=== PATIENT | female | born 1965 | race Caucasian/White ===

== ENCOUNTER 2019-09-12 06:07 | Inpatient (IN) | payer OTHER ==
[~2019-09-12] VITALS: Ht 165.1 cm; Wt 96.6 kg
[~2019-09-12 06:07] MED LIST: ALLEGRA ALLERGY60 MG; FISH OIL 1,0001 EAC2; HYDROCHLOROTHIA25 MG; MONTELUKAST SOD10 MG PO; MULTI-VITAMIN1 EACH; OZEMPIC1 MG/0.75; SIMVASTATIN20 MG PO; SPIRONOLACTONE25 MG PO; VITAMIN D34000 UNIT
--- OUTSIDE RECORDS SUMMARY | 2019-09-12 06:09 | XMS REPORT ---
Author Author [facility] Address Unknown Phone Unavailable Care Team Providers Care Chef Teacher Name Role Phone Unavailable Unavailable Problems This patient has no known problems. Allergies, Adverse Reactions, Alerts This patient has no known allergies or adverse reactions. Medications This patient has no known medications. Encounters Start Date/Time End Date/Time Encounter Type Admission Type Attending Clinicians Care Facility Care Department Encounter ID 2019-05-04 06:26:00 2019-05-04 06:26:00 Outpatient [id number]
--- OUTSIDE RECORDS SUMMARY | 2019-09-12 06:09 | XMS REPORT | Summary of Care ---
Author Author Delilah Rich M.A. Organization Unknown Address [facility] Phone Unavailable Care Team Providers Care Manager House Name Role Phone Delilah Rich M.A. Unavailable Unavailable MAURY Pacheco, LUPE Unavailable Unavailable AMURY SANDOVAL, LUPE Unavailable Unavailable Myriam Ragsdale MD Unavailable Unavailable JOSSIE Pacheco, PEÑA Unavailable Unavailable Unavailable Unavailable Functional Status Name Dates Details Functional status health issues are not documented Status: Name Dates Details Cognitive status health issues are not documented Status: Problems Name Dates Details Abnormal urine finding (791.9, R82.90) Status: Active Chronic radicular lumbar pain (724.4, M54.16) Status: Active Right knee pain (719.46, M25.561) Status: Active Acute bronchitis, bacterial (466.0, J20.8) Status: Active Albinism, 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, 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 Hypertriglyceridemia (272.1, E78.1) Status: Active Basal cell carcinoma of skin (173.91, C44.91) Status: Active Encounter for removal of sutures (V58.32, Z48.02) Status: Active Need for Tdap vaccination (V06.1, Z23) Status: Active Hypertension (401.9, I10) Status: Active Hyperlipidemia (272.4, E78.5) Status: Active Allergic rhinitis (477.9, J30.9) Status: Active Obesity, morbid, BMI 40.0-49.9 (278.01, E66.01) Status: Active Influenza vaccination declined (V64.06, Z28.21) Status: Active Morbid obesity, unspecified obesity type (278.01, E66.01) Status: Active Colon cancer screening (V76.51, Z12.11) Status: Active Medications Name Dates Details Montelukast Sodium 10 MG Oral Tablet TAKE 1 TABLET DAILY FOR ALLERGY PREVENTION Quantity: 90 MAURY Pacheco, LUPE Active Simvastatin 20 MG Oral Tablet TAKE 1 TABLET BY MOUTH DAILY * Quantity: 90 Refills: 0 SATTAR M.D., LUPE * Start : 08-Aug-2017 Active Vitamin C CAPS 1000 mg TAKE 1 CAPSULE DAILY. * Refills: 0 Active Wainwright 3 CAPS TAKE 1 CAPSULE DAILY * Refills: 0 Active Womens One Daily Oral Tablet TAKE 1 TABLET DAILY. * Refills: 0 Active hydroCHLOROthiazide 12.5 MG Oral Capsule TAKE ONE CAPSULE BY MOUTH DAILY * Quantity: 90 Refills: 0 SATTAR M.D., LUPE * Start : 08-Aug-2017 Active Fluticasone Propionate 50 MCG/ACT Nasal Suspension SHAKE LIQUID AND USE 1 SPRAY IN EACH NOSTRIL EVERY DAY * Quantity: 16 Refills: 0 SATTAR M.D., LUPE * Start : 20-Apr-2017 Active Azelastine HCl - 0.1 % Nasal Solution INSTILL 2 SPRAYS IN EACH NOSTRIL ONCE DAILY * Quantity: 1 Refills: 2 SATTAR M.D., LUPE * Start : 14-Aug-2014 Active 30 ML Bottle Finacea 15 % External Gel APPLY SPARINGLY AND RUB IN WELL TO AFFECTED AREA(S) ONCE DAILY. * Refills: 0 Active Spironolactone 25 MG Oral Tablet TAKE 1/2- 1 TABLET BY MOUTH DAILY NEEDED * Quantity: 90 Refills: 0 SATTAR M.D., LUPE * Start : 08-Aug-2017 Active Allergy ELIX INJECTION ONCE MONTHLY WITH VB NET PROGRAMMER- DR. 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0, Z83.3) Status: Active Family history of Prostate cancer (185, C61) Status: Active Social History Name Dates Details - Status: Name Dates Details Never smoker Vital Signs Date Test Result Details [id number] BP Systolic 126 mm[Hg] Status: Comments: Location: LUE; Position: Sitting BP Diastolic 78 mm[Hg] Status: Comments: Location: LUE; Position: Sitting Height 65.5 in Status: Weight 210.8 lb Status: Body Mass Index Calculated 34.55 kg/m2 Status: Body Surface Area Calculated 2.03 m2 Status: Heart Rate 74 /min Status: Comments: Location: L Brachial Artery; Respiration Rate 18 /min Status: Results Date Description Value Details Results not documented Plan of Care Name Dates Details Planned Observations Planned Goals not documented Interventions Provided Labs/Procedures/Imaging* Colonoscopy; Done: 04 May 2019 Instructions Name Dates Details Instructions not documented Encounters Appointment; LUPE MENDIOLA M.D. Encounter Diagnosis: Problem not documented On: 10-May-2017 8:00 Appointment; MYRIAM RAGSDALE M.D. Encounter Diagnosis: Problem not documented On: 12-Apr-2019 16:15
[2019-09-12 07:48] LABS: BASOPHILS % 0.3 % (0.0-1.0); EOSINOPHILS # (AUTO) 0.2 (0.0-0.4); EOSINOPHILS % 2.4 % (0.0-6.0); HEMATOCRIT 41.4 % (34.2-44.1); HEMOGLOBIN 14.3 g/dL (12.0-16.0); LYMPHOCYTES # (AUTO) 1.4 (1.0-3.2); LYMPHOCYTES % 19.3 % (18.0-39.1); MEAN CORPUSCULAR HEMOGLOBIN 31.8 pg (28-32); MEAN CORPUSCULAR HGB CONC 34.5 g/dL (31-35); MEAN CORPUSCULAR VOLUME 92.2 fL (81-99); MONOCYTES # (AUTO) 0.5 (0.2-0.8); MONOCYTES % 7.7 % (4.4-11.3); NEUTROPHILS # (AUTO) 4.9 (2.1-6.9); NEUTROPHILS % 69.9 % (38.7-80.0); PLATELET COUNT 229 x10e3/uL (140-360); RED BLOOD COUNT 4.49 x10e6/uL (3.6-5.1); RED CELL DISTRIBUTION WIDTH 12.8 % (11.7-14.4)
[2019-09-12 08:07] LABS: ANION GAP 9.2 mmol/L (8-16); BLOOD UREA NITROGEN 15 mg/dL (7-26); BUN/CREATININE RATIO 21 (6-25); CALCIUM 9.1 mg/dL (8.4-10.2); CARBON DIOXIDE 27 mmol/L (22-29); CHLORIDE 107 mmol/L (98-107); CREATININE, SERUM 0.71 mg/dL (0.57-1.11); EST GLOMERULAR FILTRATION RATE > 60 ML/MIN (60-); GLUCOSE 92 mg/dL (74-118); POTASSIUM 4.2 mmol/L (3.5-5.1); SODIUM 139 mmol/L (136-145)
[2019-09-12] MEDS ORDERED: BUPIVACAINE 0.25% 30ML SDV INJ ONE (08:30)
[2019-09-12] MEDS ORDERED: HYDROMORPHONE 2MG/ML 2 MG/ML ML ONE (10:49)
[2019-09-12] MEDS ORDERED: DEXMEDETOMIDINE HCL 2 ML ONE (12:05)
[2019-09-12] MEDS ORDERED: SODIUM CHLORIDE 0.9% 50ML 50 ML ONE (12:07)
[2019-09-12] MEDS ORDERED: ACETAMINOPHEN 1000 MG/100 ML IV PRN (12:45)
[2019-09-12] MEDS ORDERED: SODIUM CHLORIDE 0.9% 250ML IRRIG IR SCH (12:45)
[2019-09-12] MEDS ORDERED: HYDROMORPHONE 1MG/1ML INJ ONE ×2 (12:57→13:13)
[2019-09-12] MEDS ORDERED: NALOXONE HCL INJ 0.4 MG/ML AMP IV PRN (13:15)
[2019-09-12] MEDS ORDERED: ONDANSETRON HCL INJ 2MG/ML 2ML 2 MG/ML VIAL ONE ×2 (13:16→18:57)
[2019-09-12] MEDS ORDERED: FENTANYL CITRATE/PF 100MCG/2 ML INJ ONE ×2 (13:21→19:03)
[2019-09-12] MEDS ORDERED: MORPHINE SULFATE INJ 4 MG/ML INJ 1ML ONE (13:56)
--- NOTE | 2019-09-12 14:37 | NUR ---
ARRIVED VIA STRETCHER FROM PACU, TRANSFERRED TO BED WITH ASSISTANCE, AA&OX3, 2L NC, ABD DRESSING CDI, VALLE TO BSD WITH CLEAR YELLOW URINE NOTED, BILAT SCD'S IN PLACE, INSURANCE UNDERWRITING ASSISTANT VERIFIED WITH PACU NURSE, PT PAIN 03/06 AT THIS TIME, ORIENTED TO ROOM AAND CALL LIGHT SYSTEM, CALL LIGHT WITHIN REACH, FAMILY AT SIDE
[2019-09-12] MEDS ORDERED: DEXTROSE 50% SYRINGE 50 ML IV PRN (14:45)
[2019-09-12 15:01] VITALS: BP 129/80
--- NOTE | 2019-09-12 15:28 | NUR ---
PT REPORTS PAIN 7/10 AT THIS TIME
[2019-09-12 16:18] VITALS: BP 125/81
[2019-09-12] MEDS: CEFAZOLIN SOD 1 GM/NS 50ML 50 ML IV SCH (17:05)
[2019-09-12] MEDS: DEXTROSE 5%/LACTATED RINGERS 1,000 ML IV SCH ×2 (17:05→20:58)
[2019-09-12] MEDS: PANTOPRAZOLE 40 MG 10ML VIAL IV SCH (17:06)
[2019-09-12] MEDS: INSULIN REGULAR, HUMAN 100 UNIT/1 ML 3ML VIAL SQ SCH (18:00)
[2019-09-12] MEDS: HYDROMORPHONE 0.2MG/ML-SOD CHL 30ML PCA SYRINGE IV PRN (18:35)
[2019-09-12] MEDS ORDERED: LIDOCAINE HCL 2% LOCAL INJ 5 ML SDV VIAL INJ ONE (18:57)
[2019-09-12] MEDS ORDERED: NEOSTIGMINE 1 MG/ML 10ML VIAL ONE (18:57)
[2019-09-12] MEDS ORDERED: DEXAMETHASONE SOD PHOS INJ 4 MG/ML VIAL ONE (18:57)
[2019-09-12] MEDS ORDERED: GLYCOPYRROLATE INJ 0.2 MG/ML VIAL ONE (18:57)
[2019-09-12] MEDS ORDERED: KETOROLAC TROMETHAMINE 30 MG/ML VIAL ONE (18:57)
[2019-09-12] MEDS ORDERED: PROPOFOL IV EMULSION 10 MG/ML 20 ML VIAL ONE (18:57)
[2019-09-12] MEDS ORDERED: ACETAMINOPHEN 1000 MG/100 ML IV ONE (18:57)
[2019-09-12] MEDS ORDERED: ROCURONIUM BROMIDE 10 MG/ML 5ML VIAL ONE (18:57)
[2019-09-12] MEDS ORDERED: SEVOFLURANE INHAL SOLN 250 ML PEN BTL ONE (18:57)
[2019-09-12] MEDS ORDERED: MIDAZOLAM HCL 2 MG/2 ML VIAL ONE (19:03)
[2019-09-12 20:00] VITALS: BP 112/68
[2019-09-12] MEDS: ONDANSETRON HCL INJ 2MG/ML 2ML 2 MG/ML VIAL IV PRN (20:59)
[2019-09-13] VITALS (9 sets, daily range): BP systolic 105–139; BP diastolic 62–83
[2019-09-13] MEDS: CEFAZOLIN SOD 1 GM/NS 50ML 50 ML IV SCH (02:08)
[2019-09-13] MEDS: HYDROMORPHONE 0.2MG/ML-SOD CHL 30ML PCA SYRINGE IV PRN ×4 (02:23→18:44)
[2019-09-13] MEDS: DEXTROSE 5%/LACTATED RINGERS 1,000 ML IV SCH ×3 (04:07→22:30)
[2019-09-13 05:46] LABS: BASOPHILS % 0.2 % (0.0-1.0); EOSINOPHILS # (AUTO) 0.1 (0.0-0.4); EOSINOPHILS % 0.5 % (0.0-6.0); HEMATOCRIT 37.1 % (34.2-44.1); HEMOGLOBIN 12.5 g/dL (12.0-16.0); LYMPHOCYTES # (AUTO) 1.6 (1.0-3.2); LYMPHOCYTES % 14.3 % (18.0-39.1); MEAN CORPUSCULAR HEMOGLOBIN 31.9 pg (28-32); MEAN CORPUSCULAR HGB CONC 33.7 g/dL (31-35); MEAN CORPUSCULAR VOLUME 94.6 fL (81-99); MONOCYTES # (AUTO) 1.1 (0.2-0.8); MONOCYTES % 10.3 % (4.4-11.3); NEUTROPHILS # (AUTO) 8.2 (2.1-6.9); NEUTROPHILS % 74.3 % (38.7-80.0); PLATELET COUNT 202 x10e3/uL (140-360); RED BLOOD COUNT 3.92 x10e6/uL (3.6-5.1); RED CELL DISTRIBUTION WIDTH 13.1 % (11.7-14.4)
[2019-09-13] MEDS: INSULIN REGULAR, HUMAN 100 UNIT/1 ML 3ML VIAL SQ SCH ×4 (06:00→18:00)
[2019-09-13 06:04] LABS: ANION GAP 8.7 mmol/L (8-16); BLOOD UREA NITROGEN 11 mg/dL (7-26); BUN/CREATININE RATIO 15 (6-25); CALCIUM 7.9 mg/dL (8.4-10.2); CARBON DIOXIDE 27 mmol/L (22-29); CHLORIDE 107 mmol/L (98-107); CREATININE, SERUM 0.72 mg/dL (0.57-1.11); EST GLOMERULAR FILTRATION RATE > 60 ML/MIN (60-); GLUCOSE 105 mg/dL (74-118); POTASSIUM 3.7 mmol/L (3.5-5.1); SODIUM 139 mmol/L (136-145)
--- NOTE | 2019-09-13 07:00 | NUR ---
REPORT RECEIVED FROM OVERNIGHT RN. POCKET SETTER VERIFIED WITH OFF GOING NURSE- SEE DOCUMENTATION. PATIENT RESTING IN BED. STATES PAIN IS 4-5 AND COMPLAINS OF BEING THIRSTY. WCTM.
--- NOTE | 2019-09-13 12:00 | NUR ---
PATIENT SAT UP ON EDGE OF BED FOR ABOUT 10 MIN AND ASSISTED BACK INTO LAYING IN BED. PATIENT DID HAVE BELCHES. NO FLATULENCE OR BOWEL MOVEMENTS AT THIS TIME.
--- NOTE | 2019-09-13 12:30 | NUR ---
PT RESTING QUIETLY. FOREIGN LANGUAGE PROFESSOR AT SIDE FOR PAIN CONTROL. PAIN 4/10 ON PAIN SCALE. GOT PT TO DEMONSTRATE HOW TO USE IS AND ENCOURAGED HER TO USE FREQUENTLY. AT BEDSIDE.
[2019-09-13] MEDS ORDERED: HYDROMORPHONE 0.2MG/ML-SOD CHL 30ML PCA SYRINGE IV ONE (13:21)
[2019-09-13] MEDS: PANTOPRAZOLE 40 MG 10ML VIAL IV SCH (17:00)
--- NOTE | 2019-09-13 18:20 | NUR ---
IV SITE CHANGED EARLIER. PAIN UNDER CONTROL WITH LOCK AND DAM OPERATOR PUMP. TEMP ELEVATED WILL MEDICATE
--- NOTE | 2019-09-13 18:36 | NUR ---
DR BORGES TO SEE PT.
--- NOTE | 2019-09-13 18:47 | NUR ---
NEW ORDERS RECEIVED.
[2019-09-13] MEDS ORDERED: ACETAMINOPHEN 325 MG TAB PO PRN (19:00)
[2019-09-13] MEDS: ACETAMINOPHEN 1000 MG/100 ML IV SCH (19:40)
--- NOTE | 2019-09-13 19:40 | NUR ---
MEDICATED FOR FEVER ORDERED
[2019-09-13] MEDS: PIPER-TAZ 3.375 GM 50 ML IV SCH (22:30)
[2019-09-14] VITALS (8 sets, daily range): BP systolic 116–144; BP diastolic 76–95
--- NOTE | 2019-09-14 01:25 | NUR ---
report received on this patient from José Cota RN. Care of this patient taken over at this time. patient received awake, lying quietly in bed. patient receiving dilaudid via hair spring cutter pump. ivf continue to infuse without difficulty. call patel placed within reach. patient instructed to call for assistance when needed.
[2019-09-14] MEDS: PIPER-TAZ 3.375 GM 50 ML IV SCH ×4 (02:17→20:27)
[2019-09-14] MEDS: ACETAMINOPHEN 1000 MG/100 ML IV SCH ×2 (05:12→14:00)
[2019-09-14 05:56] LABS: BASOPHILS % 0.3 % (0.0-1.0); EOSINOPHILS # (AUTO) 0.1 (0.0-0.4); EOSINOPHILS % 0.9 % (0.0-6.0); HEMATOCRIT 36.7 % (34.2-44.1); HEMOGLOBIN 12.2 g/dL (12.0-16.0); LYMPHOCYTES % 9.1 % (18.0-39.1); MEAN CORPUSCULAR HEMOGLOBIN 31.9 pg (28-32); MEAN CORPUSCULAR HGB CONC 33.2 g/dL (31-35); MEAN CORPUSCULAR VOLUME 95.8 fL (81-99); MONOCYTES # (AUTO) 1.2 (0.2-0.8); MONOCYTES % 10.6 % (4.4-11.3); NEUTROPHILS # (AUTO) 8.7 (2.1-6.9); NEUTROPHILS % 78.6 % (38.7-80.0); PLATELET COUNT 206 x10e3/uL (140-360); RED BLOOD COUNT 3.83 x10e6/uL (3.6-5.1)
[2019-09-14] MEDS: INSULIN REGULAR, HUMAN 100 UNIT/1 ML 3ML VIAL SQ SCH ×4 (06:00→16:50)
[2019-09-14 06:11] LABS: ANION GAP 8.7 mmol/L (8-16); BLOOD UREA NITROGEN 8 mg/dL (7-26); BUN/CREATININE RATIO 12 (6-25); CALCIUM 8.3 mg/dL (8.4-10.2); CARBON DIOXIDE 27 mmol/L (22-29); CHLORIDE 105 mmol/L (98-107); CREATININE, SERUM 0.67 mg/dL (0.57-1.11); EST GLOMERULAR FILTRATION RATE > 60 ML/MIN (60-); GLUCOSE 107 mg/dL (74-118); POTASSIUM 3.7 mmol/L (3.5-5.1); SODIUM 137 mmol/L (136-145)
[2019-09-14] MEDS: DEXTROSE 5%/LACTATED RINGERS 1,000 ML IV SCH ×2 (07:14→12:48)
[2019-09-14] MEDS ORDERED: BISACODYL 10 MG SUPP PR ONE ×2 (09:50→13:20)
[2019-09-14] MEDS: ONDANSETRON HCL INJ 2MG/ML 2ML 2 MG/ML VIAL IV PRN ×2 (12:48→20:26)
[2019-09-14] MEDS: PANTOPRAZOLE 40 MG 10ML VIAL IV SCH (16:50)
[2019-09-14] MEDS: HYDROMORPHONE 0.2MG/ML-SOD CHL 30ML PCA SYRINGE IV PRN (20:36)
[2019-09-15] VITALS (8 sets, daily range): BP systolic 120–142; BP diastolic 75–94
--- NOTE | 2019-09-15 01:30 | NUR ---
Assisted patient to bedside commode. States she feels the urge to urinate and have a bowel movement but is unable to. bladder scan shows 404ml urine. Notified Dr. Maxwell- Wiley order give patient another hour to see if she urinates. If she is still unable to go after that, insert kong. Give patient Biscodyl suppository now. If not effective may give patient 2oz of milk of magnesia. Addendum: 09/15/19 at 0158 by Yue Middleton RN Give Bisacodyl supp 10mg now
[2019-09-15] MEDS ORDERED: BISACODYL 10 MG SUPP PR ONE (02:00)
[2019-09-15] MEDS: PIPER-TAZ 3.375 GM 50 ML IV SCH ×4 (02:48→21:28)
[2019-09-15] MEDS: DEXTROSE 5%/LACTATED RINGERS 1,000 ML IV SCH ×2 (02:48→13:22)
--- NOTE | 2019-09-15 02:56 | NUR ---
Patient continues to c/o pressure in bladder. states she continues to feel urge to urinate but unable to void. Kong 16Fr inserted using sterile technique. kong drained 1100ml clear yellow urine to bedside. Patient states she feels comfortable. No further complaints at this time. Call light in reach. Bed in locked and low position.
[2019-09-15] MEDS: HYDROMORPHONE 0.2MG/ML-SOD CHL 30ML PCA SYRINGE IV PRN (04:44)
[2019-09-15 06:27] LABS: BASOPHILS % 0.2 % (0.0-1.0); EOSINOPHILS # (AUTO) 0.2 (0.0-0.4); EOSINOPHILS % 1.8 % (0.0-6.0); HEMATOCRIT 34.4 % (34.2-44.1); HEMOGLOBIN 11.8 g/dL (12.0-16.0); LYMPHOCYTES % 10.5 % (18.0-39.1); MEAN CORPUSCULAR HEMOGLOBIN 32.3 pg (28-32); MEAN CORPUSCULAR HGB CONC 34.3 g/dL (31-35); MEAN CORPUSCULAR VOLUME 94.2 fL (81-99); MONOCYTES # (AUTO) 0.9 (0.2-0.8); MONOCYTES % 9.6 % (4.4-11.3); NEUTROPHILS # (AUTO) 7.4 (2.1-6.9); NEUTROPHILS % 77.5 % (38.7-80.0); PLATELET COUNT 209 x10e3/uL (140-360); RED BLOOD COUNT 3.65 x10e6/uL (3.6-5.1); RED CELL DISTRIBUTION WIDTH 12.6 % (11.7-14.4)
[2019-09-15 06:31] LABS: ANION GAP 8.9 mmol/L (8-16); BLOOD UREA NITROGEN 6 mg/dL (7-26); BUN/CREATININE RATIO 9 (6-25); CALCIUM 8.7 mg/dL (8.4-10.2); CARBON DIOXIDE 29 mmol/L (22-29); CHLORIDE 105 mmol/L (98-107); CREATININE, SERUM 0.66 mg/dL (0.57-1.11); EST GLOMERULAR FILTRATION RATE > 60 ML/MIN (60-); GLUCOSE 99 mg/dL (74-118); POTASSIUM 3.9 mmol/L (3.5-5.1); SODIUM 139 mmol/L (136-145)
[2019-09-15] MEDS: HYDROCODONE/APAP 7.5MG-325MG 1 EA TAB PO PRN ×3 (12:45→21:28)
--- NOTE | 2019-09-15 14:38 | NUR ---
Received patient lying in bed with eyes open. Respiration even and unlabored without SOB. Indwelling urinary catheter in placed, intact and secured to leg. at bedside. Call light in reach.
[2019-09-15] MEDS: PANTOPRAZOLE 40 MG 10ML VIAL IV SCH (16:40)
--- NOTE | 2019-09-15 19:12 | NUR ---
Report given to night nurse. respiration even and unlabored without SOB. Call light in reach.
[2019-09-16 00:10] VITALS: BP 123/84
[2019-09-16] MEDS: DEXTROSE 5%/LACTATED RINGERS 1,000 ML IV SCH (01:39)
[2019-09-16] MEDS: HYDROCODONE/APAP 7.5MG-325MG 1 EA TAB PO PRN ×2 (02:44→13:08)
[2019-09-16 04:00] VITALS: BP 121/86
[2019-09-16] MEDS: PIPER-TAZ 3.375 GM 50 ML IV SCH ×2 (04:00→09:06)
[2019-09-16 08:07] VITALS: BP 135/83
[2019-09-16 08:17] VITALS: BP 135/83
[2019-09-16 12:09] VITALS: BP 151/97
[2019-09-16] MEDS ORDERED: NORCO 7.5-3251 EACH PO (13:00)
--- NOTE | 2019-10-31 18:35 | Operative Report ---
DATE OF PROCEDURE: 09/12/2019 SURGEON: Rashel Maxwell MD PREOPERATIVE DIAGNOSIS: Ventral hernia. POSTOPERATIVE DIAGNOSIS: Ventral hernia with a large pelvic mass secondary to a massive uterine fibroid. OPERATIONS PERFORMED: Exploratory laparotomy, total abdominal hysterectomy, bilateral salpingo-oophorectomy, and repair of ventral hernia. BUSINESS CHANGE MANAGER: JEAN Singh. ANESTHESIA: General. COMPLICATIONS: None. ESTIMATED BLOOD LOSS: 200 mL. DESCRIPTION OF PROCEDURE: With the patient lying in bed in the supine position under good general endotracheal anesthesia, the abdomen was examined at this point and although we had not been able to palpate a mass in the preoperative examination, now that the patient was relaxed and had been intubated and paralyzed, it became obvious that there was a huge mass emanating from the pelvis extending way above the umbilicus. This was consistent with either some kind of a large ovarian mass or perhaps enlarged uterine fibroid. At this point, I went outside and spoke to the patient's . I explained to him that we have 2 choices. One would be to cancel the surgery and further evaluate the mass and not fix the ventral hernia at this time or the second choice would be to do an exploratory laparotomy and then deal with whatever that we found in there, whether it was an ovarian mass or a uterine mass either do an oophorectomy or hysterectomy as it would be necessary, and then also fix the hernia at the same time. After a long discussion, the patient's wanted us to go ahead and proceed with a laparotomy and to fix whatever the problem was. At that point in time, I went back and scrubbed back into the operating room. The abdomen was prepped with Betadine solution and draped in the usual manner. A midline incision was made. It was carried down through the subcutaneous tissue and the hernia sac was then opened, and the contents were reduced back to the intra-abdominal cavity. The laparotomy incision was then extended all the way down to the pelvis. Exploration at this point revealed that the patient had a massive uterus that extended above the umbilicus. There were some fibroids present within it. The 2 ovaries were within normal limits for the patient's age. There was no other intra-abdominal abnormality. There was no fluid in the abdominal cavity. The omentum did not show any sign of any disease. The liver and the rest of the abdominal cavity were otherwise within normal limits. We decided to go ahead and proceed with a hysterectomy. Two ovarian pedicles were then ligated with 0 silk and divided with the EnSeal device. The uterus was then from the bladder and the bladder flap was developed without any difficulty on both sides and the cervix was then slowly and carefully dissected downward between clamps, which were then ligated with [address] the way down to the vagina. The vaginal cuff was then opened and the uterus was removed along with the 2 ovaries and sent for pathological examination. The vagina was then closed with interrupted sutures of 0 Vicryl. Perfect hemostasis was ascertained in the area. The peritoneum was then reapproximated with a running suture of 2-0 Vicryl. The abdomen was copiously irrigated. Perfect hemostasis was ascertained and the abdomen was then closed in layers. The peritoneum was closed with a running suture of #1 Vicryl and the fascia was closed with a running suture of #1 PDS with the area of the hernia being further reinforced with interrupted sutures of 0 Ethibond. Subcutaneous tissue was then approximated with 2-0 chromic and the skin was closed with clips. A dressing was applied. The sponge, lap, and needle count was correct. The patient tolerated the procedure well and returned to the recovery room in stable condition. MD TACOS Reeves/RONNY /[id number]
--- NOTE | 2019-11-01 05:01 | Discharge Summary ---
ADMITTING DIAGNOSIS: Ventral hernia. DISCHARGE DIAGNOSES: 1. Ventral hernia. 2. 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 OPERATION PERFORMED: Exploratory laparotomy, total abdominal hysterectomy, bilateral salpingo-oophorectomy, and repair of ventral hernia. COMPLICATIONS: None. HOSPITAL COURSE: This 53-year-old female was admitted to the hospital with a large ventral hernia. At the time of surgery, she was also found to have a large uterine mass. An exploratory laparotomy was performed for what turned out to be a massive uterine fibroid. 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 The patient underwent an exploratory laparotomy with total abdominal hysterectomy with bilateral salpingo-oophorectomy and repair of ventral hernia. Postoperatively, she did very well. She remained afebrile. Her vital signs were stable. She was started on a clear liquid diet on the first postoperative day. This was slowly and carefully advanced to a regular diet and finally on 09/16/2019, with the patient being afebrile, her vital signs being stable, her wound healing nicely, tolerating a regular diet and having normal bowel movements, she was discharged to go home to be followed at the office at a later date. MD TACOS Reeves/RONNY /[id number]
== END 2019-09-16 13:10 | disposition home or self-care (01) | DRG 740 ==
LOC: OR 06:07 → MED/SURG 12:41
PROVIDERS: ADMIT Surgery; ATTEND Surgery
PROC: 0UT20ZZ Resection of Bilateral Ovaries, Open Approach (ICD-10-PCS; 2019-09-12)
PROC: 0UB70ZZ Excision of Bilateral Fallopian Tubes, Open Approach (ICD-10-PCS; 2019-09-12)
PROC: 0WQF0ZZ Repair Abdominal Wall, Open Approach (ICD-10-PCS; principal; 2019-09-12 08:39)
PROC: 0UT90ZZ Resection of Uterus, Open Approach (ICD-10-PCS; 2019-09-12 08:39)
DX: C54.1 Malignant neoplasm of endometrium (principal); K42.0 Umbilical hernia with obstruction, without gangrene; Z88.6 Allergy status to analgesic agent; Z88.7 Allergy status to serum and vaccine; R33.8 Other retention of urine; D25.1 Intramural leiomyoma of uterus; D25.0 Submucous leiomyoma of uterus
CPT/HCPCS: 36415; 80048; 82948; 84702; 85025; 88305; 88307; 93005; J0690; J1100; J1170; J1885; J2001; J2250; J2270; J2405; J2543; J2710; J3010